=== PATIENT | male | born 1960 | race African-American/Black ===

== ENCOUNTER 2017-12-26 11:49 | Emergency (ER) | payer OTHER ==
[2017-12-26 12:42] LABS: BILIRUBIN,URINE NEGATIVE (NEG); CLARITY,URINE CLEAR; COLOR,URINE YELLOW; GLUCOSE,URINE NEGATIVE (NEG); NITRITE,URINE NEGATIVE (NEG); PROTEIN,URINE NEGATIVE (NEG-TRACE)
[2017-12-26 13:17] LABS: BACTERIA,URINE FEW /HPF (0-FEW); RBC,URINE RARE /HPF (0-2); SQUAMOUS EPITHELIAL CELL,UR OCC /LPF; WBC,URINE OCC /HPF (0-4)
== END 2017-12-26 14:02 | disposition home or self-care (01) ==
LOC: ER 11:49
DX: S39.012A Strain of muscle, fascia and tendon of lower back, initial encounter (principal); S60.221A Contusion of right hand, initial encounter; I10 Essential (primary) hypertension; Z88.8 Allergy status to other drugs, medicaments and biological substances; V49.9XXA Car occupant (driver) (passenger) injured in unspecified traffic accident, initial encounter; Y93.89 Activity, other specified; Y99.8 Other external cause status; Y92.488 Other paved roadways as the place of occurrence of the external cause
CPT/HCPCS: 81001; 99283

== ENCOUNTER 2017-12-31 17:54 | Emergency (ER) | payer OTHER | END 2017-12-31 19:10 | disposition home or self-care (01) | LOC: ER 17:54 | DX: S39.012A Strain of muscle, fascia and tendon of lower back, initial encounter (principal); I10 Essential (primary) hypertension; Z88.8 Allergy status to other drugs, medicaments and biological substances; V49.9XXA Car occupant (driver) (passenger) injured in unspecified traffic accident, initial encounter; Y93.89 Activity, other specified; Y99.8 Other external cause status; Y92.488 Other paved roadways as the place of occurrence of the external cause | CPT/HCPCS: 72100; 99284 ==

== ENCOUNTER 2018-01-15 09:33 | Emergency (ER) | payer OTHER | END 2018-01-15 12:03 | disposition home or self-care (01) | LOC: ER 09:33 | DX: G89.29 Other chronic pain (principal); M54.5 Low back pain; M79.642 Pain in left hand; Z88.8 Allergy status to other drugs, medicaments and biological substances | CPT/HCPCS: 99283 ==

== ENCOUNTER 2021-02-06 07:03 | Emergency (ER) | payer OTHER ==
[~2021-02-06] VITALS: Ht 170.2 cm; Wt 80.0 kg
[~2021-02-06 07:03] MED LIST: CYCL10TA2 PO; CYCL5TAB PO; DICL100G54 TP; IBUP-1060 PO; METH4TAB2 PO
[2021-02-06 07:14] VITALS: BP 175/114
--- NOTE | 2021-02-06 07:58 | RAD ---
EXAMINATION: Right forearm and right wrist radiograph. VIEWS: 3 views of the right wrist and 2 views of the right forearm COMPARISON: None INDICATION:60 years, Male, extensor muscle pain, right forearm pain and swelling.. FINDINGS: No acute fracture, dislocation or subluxation in the wrist and forearm. No bone erosion or periosteal reaction. Diffuse soft tissue swelling about the proximal forearm IMPRESSION: Diffuse soft tissue swelling about the proximal forearm without underlying osseous abnormality. Electronically signed by: Pedrito Chua MD (02/06/2021 7:55 AM) [id number]
[2021-02-06] MEDS ORDERED: METH-561 PO (08:13)
[2021-02-06] MEDS ORDERED: diazePAM 5 MG TABLET PO ONE (08:15)
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
== END 2021-02-06 08:29 | disposition home or self-care (01) ==
LOC: ER 07:03
DX: S56.511A Strain of other extensor muscle, fascia and tendon at forearm level, right arm, initial encounter (principal); I10 Essential (primary) hypertension; Z88.5 Allergy status to narcotic agent; Z88.8 Allergy status to other drugs, medicaments and biological substances; X50.9XXA Other and unspecified overexertion or strenuous movements or postures, initial encounter; Y92.89 Other specified places as the place of occurrence of the external cause; Y93.89 Activity, other specified; Y99.8 Other external cause status
CPT/HCPCS: 73090; 73110; 99284

== ENCOUNTER 2021-06-11 20:18 | Emergency (ER) | payer OTHER ==
[~2021-06-11] VITALS: Ht 170.2 cm; Wt 75.0 kg
[~2021-06-11 20:18] MED LIST changes: +METH-561 PO
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
[2021-06-11] MEDS ORDERED: HYDROcodone/APAP 10/325 1 TAB TABLET PO ONE (22:15)
[2021-06-11 22:29] VITALS: BP 176/117
--- NOTE | 2021-06-12 00:36 | RAD ---
Three-view left foot dated 06/11/2021. No comparison available. CLINICAL INDICATION: Pain. FINDINGS: 3 views left foot show normal bony alignment. No displaced fracture. No periostitis or bone destructi on. No acute osseous or articular abnormality. There is mild degenerative change of the first MTP katelynn nt with mild hallux valgus. Diffuse vascular calcinosis. IMPRESSION: No acute radiographic abnormality. Electronically signed by: Justyn Collado MD (06/12/2021 12:34 AM) JAMES
--- NOTE | 2021-06-12 00:38 | RAD ---
Three-view left knee dated 06/11/2021. No comparison available. CLINICAL INDICATION: Pain. FINDINGS: 3 views left knee show normal bony alignment. No displaced fracture. No periostitis or bone destructi on. No acute osseous or articular abnormality. No apparent joint effusion or loose body. IMPRESSION: No acute radiographic abnormality. Electronically signed by: Justyn Collado MD (06/12/2021 12:36 AM) JAMES
--- NOTE | 2021-06-12 00:39 | RAD ---
Single view chest dated 06/12/2021 12:37 AM: COMPARISON: None Clinical Indication: Chest pain. Findings: Single supine portable exam of the chest was performed. Heart size and mediastinal contours are withi n normal limits. Lungs are clear. No consolidation or pleural effusion. No pneumothorax. IMPRESSION: No acute radiographic abnormality. Electronically signed by: Justyn Collado MD (06/12/2021 12:37 AM) JAMES
--- NOTE | 2021-06-12 00:39 | RAD ---
Three-view cervical spine dated 06/11/2021. No comparison available. Clinical data indication: Pain. FINDINGS: 3 views of cervical spine show straightening of the normal cervical lordosis. Sagittal alignment is o therwise anatomic. Vertebral body heights are maintained. No prevertebral soft tissue swelling. Poste rior elements are intact. Mild/moderate endplate hypertrophic changes with multilevel disc space narr owing and multilevel uncovertebral spurring and facet arthropathy. C1-2 articulation within normal li mits. IMPRESSION: 1. No acute radiographic abnormality. 2. Mild to moderate multilevel spondylosis. Electronically signed by: Justyn Collado MD (06/12/2021 12:37 AM) JAMES
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
== END 2021-06-11 23:10 | disposition home or self-care (01) ==
LOC: ER 20:18
DX: S90.32XA Contusion of left foot, initial encounter (principal); S80.02XA Contusion of left knee, initial encounter; I10 Essential (primary) hypertension; R07.89 Other chest pain; R10.2 Pelvic and perineal pain; Z88.5 Allergy status to narcotic agent; Z88.8 Allergy status to other drugs, medicaments and biological substances; V43.52XA Car driver injured in collision with other type car in traffic accident, initial encounter; Y93.89 Activity, other specified; Y92.488 Other paved roadways as the place of occurrence of the external cause; Y99.8 Other external cause status
CPT/HCPCS: 71045; 72040; 72170; 73562; 73630; 99284

== ENCOUNTER 2021-12-22 03:08 | Emergency (ER) | payer SELFPAY ==
[~2021-12-22] VITALS: Ht 170.2 cm; Wt 77.3 kg
[~2021-12-22 03:08] MED LIST changes: +CYCL10TA19 PO; -CYCL10TA2 PO
[2021-12-22 03:12] VITALS: BP 171/106
[2021-12-22] MEDS ORDERED: TETRACAINE 0.5% OPHTH SOLUTION 4ML BOTTLE. OD ONE (03:30)
[2021-12-22] MEDS ORDERED: FLUORESCEIN OPHTH TEST STRIP. OD ONE (03:30)
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
[2021-12-22] MEDS ORDERED: TOBR5DRO6 EACHEYE (03:45)
== END 2021-12-22 04:02 | disposition home or self-care (01) ==
LOC: ER 03:08
DX: H57.89 Other specified disorders of eye and adnexa (principal); I10 Essential (primary) hypertension; Z88.5 Allergy status to narcotic agent; Z88.8 Allergy status to other drugs, medicaments and biological substances
CPT/HCPCS: 99283

== ENCOUNTER 2022-01-22 17:34 | Emergency (ER) | payer OTHER ==
[~2022-01-22] VITALS: Ht 170.2 cm; Wt 75.0 kg
[~2022-01-22 17:34] MED LIST changes: +TOBR5DRO6 EACHEYE
[2022-01-22] MEDS ORDERED: ACETAMINOPHEN 500 MG TABLET PO ONE (18:00)
[2022-01-22] MEDS ORDERED: cloNIDine HCL 0.1 MG TABLET PO ONE (18:00)
[2022-01-22 18:08] LABS: BASO # 0.1 x10^3/uL (0.0-0.2); BASO % 1 % (0-3); EOS % 0 % (0-3); HEMATOCRIT 43.6 % (39.0-53.0); HEMOGLOBIN 14.7 g/dL (13.0-17.5); LYMPH # 2.2 x10^3/uL (1.0-4.8); LYMPH % 29 % (24-48); MEAN CORPUSCULAR HEMOGLOBIN 31 pg (25-35); MEAN CORPUSCULAR HGB CONC 34 g/dL (31-37); MEAN CORPUSCULAR VOLUME 90 fL (79-100); MONO # 0.9 x10^3/uL (0.0-1.1); MONO % 11 % (0-9); NEUT # 4.6 x10^3/uL (1.8-7.7); NEUT % 59 % (31-73); PLATELET COUNT 176 x10^3/uL (140-400); RED BLOOD COUNT 4.82 x10^6/uL (4.30-5.70); RED CELL DISTRIBUTION WIDTH 14.2 % (11.5-14.5); WHITE BLOOD COUNT 7.8 x10^3/uL (4.0-11.0)
[2022-01-22 18:16] LABS: CALCIUM 9.2 mg/dL (8.5-10.1); CREATININE 1.4 mg/dL (0.7-1.3); GFR 62.8; POTASSIUM 3.9 mmol/L (3.5-5.1)
[2022-01-22 18:22] LABS: ALBUMIN 3.7 g/dL (3.4-5.0); ALBUMIN/GLOBULIN RATIO 0.8 (1.0-1.7); MAGNESIUM 2.1 mg/dL (1.8-2.4); TOTAL BILIRUBIN 0.4 mg/dL (0.2-1.0); TOTAL PROTEIN 8.1 g/dL (6.4-8.2)
--- NOTE | 2022-01-22 18:27 | RAD ---
Exam: CT head INDICATION: Headache TECHNIQUE: Sequential axial images through the head were obtained without the administration of IV co ntrast. Exposure: One or more of the following in the visualized dose reduction techniques were utilized for this examination: 1. Automated exposure control 2. Adjustment of the MA and/or KV according to patient size 3. Use of iterative of reconstructive technique Comparisons: None FINDINGS: No focal parenchymal lesion or hemorrhage is identified. There is no midline shift or sulcal effaceme nt. No acute vascular territory infarction is identified. Hernandez-white distinction is preserved. The ventricular system is within normal limits without compression hydrocephalus. The basal cisterns are well maintained. The visualized portions of the paranasal sinuses and mastoid air cells are well-pneumatized. No acute fractures. IMPRESSION: No acute intracranial abnormality. Electronically signed by: Jennifer Blair MD (01/22/2022 6:25 PM) [id number]
[2022-01-22 19:14] LABS: AMPHETAMINE/METHAMPHETAMINE NEG (NEG); BARBITURATES NEG (NEG); BENZODIAZEPINES NEG (NEG); CANNABINOIDS NEG (NEG); COCAINE NEG (NEG); METHADONE NEG (NEG); OPIATES NEG (NEG); PHENCYCLIDINE NEG (NEG)
[2022-01-22 19:25] LABS: BACTERIA,URINE 0 /HPF (0-FEW); RBC,URINE 0 /HPF (0-2); WBC,URINE 0 /HPF (0-4)
[2022-01-22] MEDS ORDERED: LISI1TAB35 PO (19:45)
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
[2022-01-22 20:14] VITALS: BP 150/88
--- NOTE | 2022-01-23 07:26 | EKG ---
[facility] [address] [place] [address] Test Date: 2022-01-22 Test Time: 17:50:28 Pat Name: TIP GUZMAN Department: Room: Gender: M [employer]: : [phone] Requested By: CHUYITA SALAZAR Order Number: [id number] Reading MD: Eddi Jerome Measurements Intervals [place] Rate: 85 P: 36 OK: 164 QRS: 48 QRSD: 78 T: 43 QT: 310 QTc: 369 Interpretive Statements SINUS RHYTHM MILD NON SPECIFIC ST CHANGES Electronically Signed On 01-25-2022 10:29:46 CDT by Eddi Jerome
== END 2022-01-22 20:22 | disposition home or self-care (01) ==
LOC: ER 17:34
DX: G89.29 Other chronic pain (principal); R51.9 Headache, unspecified; I10 Essential (primary) hypertension; Z88.5 Allergy status to narcotic agent; Z88.8 Allergy status to other drugs, medicaments and biological substances
CPT/HCPCS: 36415; 70450; 80053; 80307; 81001; 83735; 83880; 84443; 84484; 85025; 93005; 99285-25